=== PATIENT | male | born 1955 | race Caucasian/White ===

== ENCOUNTER 2016-06-23 13:35 | Inpatient (IN) ==
--- NOTE | 2016-06-22 22:12 | Discharge Summary ---
<Gisela Florian Alok - Last Filed: 06/22/16 22:09> Date of Encounter: 06/22/16 - Discharge Diagnosis (1) Arthritis of right hip Priority: Primary Status: Acute (2) HTN (hypertension) Priority: Secondary Status: Chronic Qualifiers: Hypertension type: essential hypertension (3) HLD (hyperlipidemia) Priority: Secondary Status: Chronic Qualifiers: Hyperlipidemia type: unspecified (4) Obesity Priority: Secondary Status: Chronic Qualifiers: Obesity type: unspecified obesity type Obesity severity: unspecified obesity severity Qualified Code(s): E66.9 - Obesity, unspecified - Discharge Medications Home Medications: Calcium Carbonate [Calcium] 600 mg PO BID 09/10/15 [History] Ergocalciferol (VITAMIN D2) [Vitamin D2] 2,000 unit PO DAILY 09/10/15 [History] Ferrous Sulfate 325 mg PO DAILY 09/10/15 [History] Lisinopril 40 mg PO DAILY 09/10/15 [History] Multivitamin [Multi-Day Vitamins] 1 each PO DAILY 09/10/15 [History] [place]-3/Dha/Epa/Fish Oil [Fish Oil Dr 500 mg Softgel] 500 mg PO DAILY 09/10/15 [ History] Terazosin [Hytrin] 5 mg PO DAILY 09/10/15 [History] hydrOXYzine HCl [Hydroxyzine HCl] 50 mg PO HS PRN 09/10/15 [History] hydroCHLOROthiazide [Hydrochlorothiazide] 25 mg PO DAILY 09/10/15 [History] Aspirin Enteric Coated [Aspirin EC] 325 mg PO DAILY #21 tablet. 06/22/16 [Rx] OxyCODONE Immed Rel [Roxicodone 5 MG] 5 - 10 mg PO Q6HR PRN #40 tablet 06/22/16 [Rx] Aspirin Enteric Coated [Aspirin EC] 81 mg PO DAILY 06/23/16 [History] Cyanocobalamin (Vitamin B-12) [Vitamin B-12] 100 mcg PO DAILY 06/23/16 [History] Rosuvastatin Calcium [Crestor] 10 mg PO HS 06/23/16 [History] Allergies/Adverse Reactions: Allergies No Known Allergies Allergy (Verified 09/10/15 08:55) Primary care physician: Conner Painting DO - Patient Status Disposition: Home, Self-Care Condition: Good - Discharge Instructions Follow Up With: Conner Painting DO [Primary Care Provider] - - Hospital Course Hospital course: Mr. Mendez is a 60 year old male - Time Spent with Patient Total time spent providing and/or coordinating discharge services: <Maacrio Sloan - Last Filed: 06/25/16 08:08> Date of Encounter: 06/25/16 Time of Encounter: 08:07 - Discharge Diagnosis (1) Morbid obesity Priority: Secondary Status: Chronic Qualifiers: Obesity type: unspecified obesity type Qualified Code(s): E66.01 - Morbid ( severe) obesity due to excess calories (2) HTN (hypertension) Priority: Secondary Status: Chronic Qualifiers: Hypertension type: unspecified secondary hypertension Qualified Code(s): I15.9 - Secondary hypertension, unspecified; I15 - Secondary hypertension (3) HLD (hyperlipidemia) Priority: Secondary Status: Chronic Qualifiers: Hyperlipidemia type: unspecified Qualified Code(s): E78.5 - Hyperlipidemia , unspecified (4) Arthritis of right hip Priority: Primary Status: Acute Primary care physician: Conner Painting DO - Patient Status Functional capacity at discharge: uses cane/walker Overall status at discharge: patient is progressing back to baseline - Hospital Course Hospital course: Mr. Mendez is a 60 year old male The patient had an uneventful postoperative course. They received antibiotics and physical therapy and were discharged in stable condition. There will follow -up in the office in 2 weeks. Aspirin DVT prophylaxis - Time Spent with Patient Total time spent providing and/or coordinating discharge services:
--- NOTE | 2016-06-23 13:42 | History & Physical Report ---
Date of Encounter: 06/23/16 Time of Encounter: 13:41 24 Hour HP Update - Instructions Instructions: If the History and Physical is less than 30 days old and was completed prior to A.M. admission and or procedure and has NOT been updated on calendar day of procedure please complete this update prior to performing procedure. - Update Patient reports changes in Medical Condition: No Changes in examination, assessment, or condition: No Changes in Medication: No Preop tests/diagnostics Reviewed: Yes Surgery Remains Indicated: Yes Consent for Planned Operative Procedure(s) Verified: Yes - Pre-Operative Checklist Preoperative Checklist Indicated: No Prophylactic Antibiotic Ordered: Yes Is VTE Prophylaxis Indicated?: Yes
[2016-06-23] MEDS ORDERED: CeFAZolin Pre 3,000 MG/100 ML 3,000 MG/100 ML BAG IVPB ONE (13:51)
[2016-06-23] MEDS ORDERED: Ringers Solution, Lactated 1,000 ML IVC SCH (14:00)
[2016-06-23] MEDS ORDERED: Famotidine 20 MG/2 ML VIAL IVP ONE (14:31)
[2016-06-23] MEDS ORDERED: Acetaminophen IV 1,000 MG/100 ML INFUS..BTL IVPB ONE (14:31)
[2016-06-23] MEDS ORDERED: Gabapentin 300 MG CAPSULE PO ONE (14:31)
--- NOTE | 2016-06-23 14:45 | Anesthesia Evaluation PreOp ---
Date of Encounter: 06/23/16 Time of Encounter: 14:45 - Past History Planned Operation: Rt THR Cardiac History: HTN, Hyperlipidemia Pulmonary History: Denies Any Significant HX HAT DESIGNER History: Denies Any Significant HX Other Medical History: Other (Morbid Obesity) Anesthesia History: No Prior Anesthetic Complications Alcohol Use: none Drug use: none Medications and Allergies Calcium Carbonate [Calcium] 600 mg PO BID 09/10/15 [History] Ergocalciferol (VITAMIN D2) [Vitamin D2] 2,000 unit PO DAILY 09/10/15 [History] Ferrous Sulfate 325 mg PO DAILY 09/10/15 [History] Lisinopril 40 mg PO DAILY 09/10/15 [History] Multivitamin [Multi-Day Vitamins] 1 each PO DAILY 09/10/15 [History] [place]-3/Dha/Epa/Fish Oil [Fish Oil Dr 500 mg Softgel] 500 mg PO DAILY 09/10/15 [ History] Terazosin [Hytrin] 5 mg PO DAILY 09/10/15 [History] hydrOXYzine HCl [Hydroxyzine HCl] 50 mg PO HS PRN 09/10/15 [History] hydroCHLOROthiazide [Hydrochlorothiazide] 25 mg PO DAILY 09/10/15 [History] Aspirin Enteric Coated [Aspirin EC] 325 mg PO DAILY #21 tablet. 06/22/16 [Rx] OxyCODONE Immed Rel [Roxicodone 5 MG] 5 - 10 mg PO Q6HR PRN #40 tablet 06/22/16 [Rx] Aspirin Enteric Coated [Aspirin EC] 81 mg PO DAILY 06/23/16 [History] Cyanocobalamin (Vitamin B-12) [Vitamin B-12] 100 mcg PO DAILY 06/23/16 [History] Oxycodone HCl/Acetaminophen [Percocet 5-325 mg Tablet] 0.5 - 1 each PO Q12H PRN 06/23/16 [History] Rosuvastatin Calcium [Crestor] 10 mg PO HS 06/23/16 [History] Allergies No Known Allergies Allergy (Verified 09/10/15 08:55) - Meds/Allergy Pre-op Review Medications Reviewed: Yes Allergies Reviewed: Yes Beta Blockers on Current Med List: No Anesthesia Results - Labs Laboratory Tests 05/27/16 05/27/16 12:01 12:01 Hgb 16.3 Hct 48.3 Plt Count 289 Sodium 141 Potassium 4.3 BUN 15 Creatinine 0.97 - Imaging EKG: report reviewed (SB) Additional studies: Nuclear/Pharmacologic Stress Test Negative for Ischemia EF 51% Anesthesia Exam O2 Sat Height 1.8 m Height 1.8 m Weight 139.253 kg Weight 139.253 kg O2 Sat by Pulse Oximetry 95 Vital Signs Temp Pulse Resp BP Pulse Ox 98.5 F 58 18 144/78 95 06/23/16 13:53 06/23/16 13:53 06/23/16 13:53 06/23/16 13:53 06/23/16 13:53 Height: 5'11 Weight: 307 lbs NPO (# of Hours): MN Pain Scale: 0 - HEENT Pupil (Motor): Pupils equal, EOMI Mallampati: III Teeth: Normal Oral Opening: Greater than 3 - HAT DESIGNER LOC: Oriented HAT DESIGNER Sensory: Normal: RUE, LUE, RLE, LLE, Face - Cardiac Rhythm: Regular Murmur: None JVD: No Carotid Bruit: No - Pulmonary Breath Sounds: bilateral Clear Respiratory Effort: Symmetrical Anesthesia Assess/Plan ASA Score: 3 (HTN MO) Modified [place] Scale for Level of Consciousness: Cooperative, oriented, and tranquil Anesthetic Plan: General Monitoring Plan: Standard Monitors Recovery Plan: PACU (Discussed GA, agrees to proceed)
[2016-06-23] MEDS ORDERED: Ondansetron 4 MG/2 ML VIAL ONE (16:34)
[2016-06-23] MEDS ORDERED: *HR* Succinylcholine 200 MG/10 ML VIAL IVP ONE (16:34)
[2016-06-23] MEDS ORDERED: Dexamethasone 4 MG/ML VIAL ONE (16:34)
[2016-06-23] MEDS ORDERED: *HR* Midazolam HCl 2 MG/2 ML VIAL ONE (16:34)
[2016-06-23] MEDS ORDERED: Lidocaine -MPF 4% 5 ML AMPUL ONE (16:34)
[2016-06-23] MEDS ORDERED: *HR* FentaNYL (PF) 100 MCG/2 ML VIAL ONE (16:34)
[2016-06-23] MEDS ORDERED: Lidocaine -MPF 2% 2 ML VIAL ONE (16:35)
[2016-06-23] MEDS ORDERED: *HR* Propofol 200 MG/20 ML VIAL IVP ONE (16:35)
[2016-06-23] MEDS ORDERED: *HR* HYDROmorphone 2 MG/ML SYRINGE ONE (17:08)
[2016-06-23] MEDS ORDERED: EPHEDrine 50 MG/ML VIAL ONE (17:15)
[2016-06-23] MEDS ORDERED: *HR* HYDROmorphone (PF) 1 MG/ML SYRINGE IVP PRN ×2 (17:35→19:56)
[2016-06-23] MEDS ORDERED: *HR* Promethazine 25 MG/ML VIAL IVP PRN (17:35)
[2016-06-23] MEDS ORDERED: Ondansetron 4 MG/2 ML VIAL IVP PRN ×2 (17:35→19:56)
[2016-06-23] MEDS ORDERED: *HR* Meperidine 25 MG/ML SYRINGE IVP PRN (17:35)
[2016-06-23] MEDS ORDERED: Naloxone 0.4 MG/ML INJ IVP PRN ×2 (17:35→19:56)
--- NOTE | 2016-06-23 17:40 | Orthopedic Operative Note ---
Date of procedure: 06/23/16 Pre-op diagnosis: Right hip arthritis Post-op diagnosis: same Procedure: Procedure: Right Total Hip Replacment Estimated blood loss: 200 cc Hardware: Metal and polyethylene replacement. Biomet DM Cup: 56 G7 fin cup Femoral size 15 echo full profile lateralized stem Head: +3 head with Kaye Exam under anesthesia: Global loss of motion of the right hip Procedural Notes: Grade 4 arthritic changes femoral head acetabular socket. Operative procedure: The patient was brought to the operating room and placed on the operating room table. After general anesthesia was administered the patient was placed in the lateral decubitus position with the operative leg up. All pressure points were padded appropriately and the head was stabilized in the neutral position. The operative extremity was prepped and draped in the sterile surgical fashion patient received IV antibiotic prior to skin incision. A standard posterior approach is made to the operative hip, the incision was made through the skin and subcutaneous tissue hemostasis was obtained with Bovie cautery. Using careful sharp dissection the fascia was identified and incised exposing the external rotators. The external rotators were released off the greater trochanter and tagged with #2 FiberWire suture. The capsule was T'd open and the hip was brought into internal rotation. Patient noted to have grade 4 arthritic changes femoral head. The femoral neck cut was made at the appropriate level. An anterior capsulotomy was performed for the anterior retractor. Soft tissues removed from the acetabulum. Patient noted to have grade 4 arthritic changes acetabulum. Acetabulum was first reamed medially, and then reamed in 15 degrees of anteversion and 45 degrees off the horizontal. It was reamed up to the appropriate size 66 The appropriate-sized 56 acetabular cup was impacted in place in 15 degrees of anteversion and 45 degrees off the horizontal. This had good fit and fixation. The hip was brought back in to internal rotation and prepared with the card boxer followed by the canal finder followed by broaching process in 20 degrees anteversion. It was broached up to the appropriate size 11 The femoral implant was impacted in place in 20 degrees of anteversion. Trial reduction found the hip to be stable with +3 head and Kaye. The trials were removed and the real implants were impacted in place. The hip was reduced, patient had apparent equal leg lengths. The hip had excellent stability with forward flexion to 90 degrees adduction of 30 degrees and internal rotation of 60 degrees. The hip had no shuck. The hips after 2 minutes with a Betadine saline solution. It was irrigated out with 2 L of pulse irrigation. The external rotators were reattached to drill holes in the greater trochanter. Fascia was closed with a running #2 PDS suture. The deep tissue was irrigated and closed deep with #1 PDS suture superficially with 0 PDS suture and skin was closed with Dermabond and skin shira. The patient was placed in a sterile dressing and abduction pillow. The patient was extubated and transferred to the recovery room in stable condition. Anesthesia: GETA Surgeon: Macario Sloan Condition: stable Disposition: PACU
[2016-06-23] MEDS ORDERED: *HR* Enoxaparin 30 MG/0.3 ML SYRINGE SQ SCH (18:00)
--- NOTE | 2016-06-23 18:50 | Anesthesia Evaluation Post Op ---
Date of Encounter: 06/23/16 Time of Encounter: 18:50 - Vital Signs Vital Signs: Vital Signs/O2 Sat, Most Current Temp Pulse Resp BP Pulse Ox 97.0 F L 52 16 126/74 96 06/23/16 18:41 06/23/16 18:41 06/23/16 18:41 06/23/16 18:41 06/23/16 18:41 - Lungs Lungs: Clear Ascult./Percussion - Airway Airway: Non-obstructed - Cardiovascular Regular Rate - Mental Status Mental Status: Alert & Oriented, Answers Appropriately - Pain Pain Scale: 4 Pain Scale used: Numeric (1 - 10) - Nausea Vomiting Nausea Vomiting: Not Present - Hydration Hydration: Ice chips, Has not voided - Discharge PostOp Status: Transfer Patient to floor
[2016-06-23 19:02] LABS: Hematocrit 41.5 % (37.5-50.1); Hemoglobin 14.1 g/dL (12.9-16.9)
[2016-06-23] MEDS ORDERED: *HR* OxyCODONE Immed Rel 5 MG TABLET PO PRN (19:56)
[2016-06-23] MEDS ORDERED: MOM Conc 10 ML UD.LIQ PO PRN (19:56)
[2016-06-23] MEDS ORDERED: Temazepam 15 MG CAPSULE PO PRN (19:56)
[2016-06-23] MEDS ORDERED: Sennosides 8.6 MG TABLET PO PRN (19:56)
[2016-06-23] MEDS ORDERED: hydrOXYzine pamoate 25 MG CAPSULE PO PRN (19:56)
[2016-06-23] MEDS: Ascorbic Acid 500 MG TABLET PO SCH (22:41)
[2016-06-23] MEDS: *HR* OxyCODONE Immed Rel 5 MG TABLET PO PRN (22:41)
[2016-06-23] MEDS: ceFAZolin 3,000 MG in D5% in Water 100 ML IVPB SCH (22:42)
[2016-06-24] MEDS: ceFAZolin 3,000 MG in D5% in Water 100 ML IVPB SCH (02:44)
[2016-06-24] MEDS: *HR* Enoxaparin 30 MG/0.3 ML SYRINGE SQ SCH ×2 (05:26→16:48)
[2016-06-24] MEDS: *HR* OxyCODONE Immed Rel 5 MG TABLET PO PRN ×4 (05:28→20:58)
[2016-06-24 06:32] LABS: Hematocrit 40.2 % (37.5-50.1); Hemoglobin 13.3 g/dL (12.9-16.9)
--- NOTE | 2016-06-24 06:45 | Orthopedics Progress Note ---
Date of Encounter: 06/24/16 Time of Encounter: 06:44 - Assessment and Plan (1) Morbid obesity Current Visit: Yes Status: Chronic Qualifiers: Obesity type: unspecified obesity type Qualified Code(s): E66.01 - Morbid ( severe) obesity due to excess calories (2) HTN (hypertension) Current Visit: No Status: Chronic Qualifiers: Hypertension type: unspecified secondary hypertension Qualified Code(s): I15.9 - Secondary hypertension, unspecified; I15 - Secondary hypertension (3) HLD (hyperlipidemia) Current Visit: No Status: Chronic Qualifiers: Hyperlipidemia type: unspecified Qualified Code(s): E78.5 - Hyperlipidemia , unspecified (4) Arthritis of right hip Current Visit: Yes Status: Acute Subjective Interval history: Patient was seen this morning doing well without complaints. Afebrile vital signs stable. Operative extremity: Neurovascularly intact Dressing clean dry and intact Calves nontender Assessment and plan: Continue with postoperative care Objective Vital signs: Vital Signs Temp Pulse Resp BP Pulse Ox 06/24/16 04:02 97.6 F 59 16 116/68 97 06/24/16 00:46 97.6 F 54 16 94/60 95 06/23/16 22:55 98.2 F 54 16 100/60 95 06/23/16 21:45 98.3 F 55 18 98/56 97 06/23/16 20:45 98.1 F 50 16 102/69 96 06/23/16 20:15 98.2 F 53 16 106/68 95 06/23/16 19:48 98.1 F 53 16 102/68 95 06/23/16 18:51 58 16 122/78 94 06/23/16 18:41 97.0 F L 52 16 126/74 96 06/23/16 18:31 68 16 109/88 92 06/23/16 18:21 65 16 121/83 94 06/23/16 18:11 97.4 F L 76 16 146/97 94 06/23/16 13:53 98.5 F 58 18 144/78 95 Intake and Output 06/23/16 06/23/16 06/24/16 15:59 23:59 07:59 Intake Total 100 / 100 100 / 100 Output Total 500 / 500 Balance -400 / -400 100 / 100 Intake: IV Fluids 100 / 100 100 / 100 Ancef 3,000 MG In 100 / 100 100 / 100 Dextrose 5% 100 ML @ 200 mls/hr IVPB Q8HR [facility] Rx#: [id number] Output: Estimated Blood Loss 500 / 500 Other: Weight 139.253 kg - Labs CBC & BMP: 06/24/16 05:58 - VTE Documentation of Mechanical Device: Venous foot pump, device Consult Discharge Plan - Plan Referrals: Conner Painting DO [Primary Care Provider] -
[2016-06-24 06:50] LABS: BUN/Creatinine Ratio 21 (6-26); Blood Urea Nitrogen 19 mg/dL (8-26); Calcium 9.5 mg/dL (8.6-10.8); Carbon Dioxide 25 mEq/L (19-29); Chloride 99 mEq/L (98-109); Glucose 146 mg/dL (70-99); Osmolality,Calculated 285 (280-300); Potassium 4.4 mEq/L (3.5-4.5); Sodium 135 mEq/L (136-145); eGFR For African Americans > 60 (> 60); eGFR For Non-African Americans > 60 (> 60)
[2016-06-24] MEDS: hydroCHLOROthiazide 25 MG TABLET PO SCH (08:27)
[2016-06-24] MEDS: Ascorbic Acid 500 MG TABLET PO SCH ×2 (08:27→16:48)
[2016-06-24] MEDS: Multivit/Ca/Min/Fe/FA 1 TAB TABLET PO SCH (08:27)
[2016-06-24] MEDS: Cholecalciferol (D-3) 1,000 UNIT TABLET PO SCH (08:27)
[2016-06-24] MEDS: Aspirin Enteric Coated 81 MG Tablet PO SCH (08:27)
[2016-06-24] MEDS: Cyanocobalamin (B-12) 1,000 MCG TABLET PO SCH (08:27)
[2016-06-24] MEDS: Lisinopril 20 MG TABLET PO SCH (08:28)
[2016-06-24] MEDS: FISH OIL 500 MG PO SCH (08:28)
[2016-06-24] MEDS: Ringers Solution, Lactated 1,000 ML IVC SCH ×2 (08:33→13:09)
[2016-06-24] MEDS ORDERED: NON-FORMULARY MEDICATION 1 EACH EACH (Multivitamin [Multi-Day Vitamins] 1 EACH) PO SCH (09:00)
[2016-06-25] MEDS: *HR* OxyCODONE Immed Rel 5 MG TABLET PO PRN ×3 (03:47→13:13)
[2016-06-25] MEDS: *HR* Enoxaparin 30 MG/0.3 ML SYRINGE SQ SCH (05:43)
[2016-06-25 05:58] LABS: Hematocrit 33.5 % (37.5-50.1)
[2016-06-25 06:11] LABS: Hemoglobin 11.4 g/dL (12.9-16.9)
[2016-06-25 06:15] LABS: BUN/Creatinine Ratio 23 (6-26); Blood Urea Nitrogen 28 mg/dL (8-26); Calcium 9.7 mg/dL (8.6-10.8); Carbon Dioxide 30 mEq/L (19-29); Chloride 94 mEq/L (98-109); Glucose 109 mg/dL (70-99); Osmolality,Calculated 276 (280-300); Potassium 4.1 mEq/L (3.5-4.5); Sodium 130 mEq/L (136-145); eGFR For African Americans > 60 (> 60); eGFR For Non-African Americans > 60 (> 60)
[2016-06-25] MEDS: Multivit/Ca/Min/Fe/FA 1 TAB TABLET PO SCH (09:13)
[2016-06-25] MEDS: Aspirin Enteric Coated 81 MG Tablet PO SCH (09:13)
[2016-06-25] MEDS: Cholecalciferol (D-3) 1,000 UNIT TABLET PO SCH (09:13)
[2016-06-25] MEDS: Ascorbic Acid 500 MG TABLET PO SCH (09:13)
[2016-06-25] MEDS: hydroCHLOROthiazide 25 MG TABLET PO SCH (09:13)
[2016-06-25] MEDS: Cyanocobalamin (B-12) 1,000 MCG TABLET PO SCH (09:13)
[2016-06-25] MEDS: FISH OIL 500 MG PO SCH (09:14)
[2016-06-25] MEDS: Lisinopril 20 MG TABLET PO SCH (09:14)
[2016-06-25 10:46] VITALS: BP 107/63
[2016-06-25] MEDS: Ringers Solution, Lactated 1,000 ML IVC SCH (12:13)
== END 2016-06-25 14:40 | disposition home or self-care (01) | DRG 470 ==
LOC: SAMDAY 13:35 → 3NENU 19:44
PROVIDERS: ADMIT Orthopaedic Surgery; ATTEND Orthopaedic Surgery

== ENCOUNTER 2021-12-06 06:03 | Inpatient (IN) ==
[2021-12-06] MEDS ORDERED: CeFAZolin Syr 3,000MG/30 ML 3,000 MG/30 ML SYRINGE IVPB ONE (06:21)
[2021-12-06] MEDS ORDERED: Ringers Solution, Lactated 1,000 ML IVC SCH (06:30)
[2021-12-06] MEDS ORDERED: *HR* OxyCODONE Immed Rel 5 MG TABLET PO ONE (07:00)
[2021-12-06] MEDS ORDERED: tiZANidine 4 MG TABLET PO ONE (07:00)
[2021-12-06] MEDS ORDERED: Famotidine 20 MG TABLET PO ONE (07:00)
[2021-12-06] MEDS ORDERED: Pregabalin 75 MG CAPSULE PO ONE (07:00)
[2021-12-06] MEDS ORDERED: Vancomycin 1,000 MG VIAL ONE ×2 (07:14→12:50)
[2021-12-06] MEDS ORDERED: Bacitracin OINT PKT TP ONE (07:14)
[2021-12-06] MEDS ORDERED: *HR* Propofol 200 MG/20 ML VIAL IVP ONE (07:23)
[2021-12-06] MEDS ORDERED: *HR* Midazolam HCl 2 MG/2 ML VIAL ONE (07:23)
[2021-12-06] MEDS ORDERED: *HR* Succinylcholine 200 MG/10 ML VIAL IVP ONE (07:23)
[2021-12-06] MEDS ORDERED: *HR* FentaNYL (PF) 100 MCG/2 ML VIAL ONE (07:23)
[2021-12-06] MEDS ORDERED: Ondansetron 4 MG/2 ML VIAL ONE (07:23)
[2021-12-06] MEDS ORDERED: *HR* Remifentanil 1 MG VIAL IVP ONE ×4 (07:23→13:09)
[2021-12-06] MEDS ORDERED: *HR* Phenylephrine 10 MG/ML VIAL ONE ×2 (07:34→12:46)
[2021-12-06] MEDS ORDERED: *HR* Remifentanil 2 MG VIAL IVP ONE (10:01)
[2021-12-06] MEDS ORDERED: Ondansetron 4 MG/2 ML VIAL IVP PRN ×2 (10:58→18:03)
[2021-12-06] MEDS: *HR* HYDROmorphone PF 0.5 MG/0.5 ML SYRINGE IVP PRN ×3 (16:06→16:38)
[2021-12-06] MEDS ORDERED: Naloxone 0.4 MG/ML INJ IVP PRN (18:03)
[2021-12-06] MEDS ORDERED: SILDENAFIL CITRATE 100 MG PO PRN (18:03)
[2021-12-06] MEDS ORDERED: Acetaminophen 325 MG TABLET PO PRN (18:03)
[2021-12-06] MEDS ORDERED: CeFAZolin Syr 3,000MG/30 ML 3,000 MG/30 ML SYRINGE IVPB SCH (18:03)
[2021-12-06] MEDS: ceFAZolin 3,000 MG in 0.9 % Sodium Chloride 100 ML IVPB SCH (20:28)
[2021-12-06] MEDS: Ringers Solution, Lactated 1,000 ML IVC SCH (20:28)
[2021-12-06] MEDS: traZODone 50 MG TABLET PO SCH (20:28)
[2021-12-06] MEDS: Gabapentin 300 MG CAPSULE PO SCH (20:29)
[2021-12-06] MEDS: *HR* OxyCODONE Immed Rel 5 MG TABLET PO PRN (23:47)
[2021-12-07] MEDS: ceFAZolin 3,000 MG in 0.9 % Sodium Chloride 100 ML IVPB SCH (02:39)
[2021-12-07] MEDS: *HR* HYDROcodone/Acet 5/325 mg TABLET PO PRN ×3 (03:18→20:18)
[2021-12-07] MEDS ORDERED: NON-FORMULARY MEDICATION 1 EACH EACH (Omega-3/Dha/Epa/Fish Oil [Fish Oil Dr 500 Mg Softgel PO SCH (09:00)
[2021-12-07] MEDS: Ringers Solution, Lactated 1,000 ML IVC SCH ×3 (09:36→22:50)
[2021-12-07] MEDS: Cholecalciferol (D-3) 1,000 UNIT (25MCG) TABLET PO SCH (09:36)
[2021-12-07] MEDS: Aspirin Enteric Coated 81 MG Tablet PO SCH (09:37)
[2021-12-07] MEDS: Gabapentin 300 MG CAPSULE PO SCH ×3 (09:38→20:18)
[2021-12-07] MEDS: Multivit/Ca/Min/Fe/FA 1 TAB TABLET PO SCH (09:38)
[2021-12-07] MEDS: Cyanocobalamin (B-12) 1,000 MCG TABLET PO SCH (09:38)
[2021-12-07] MEDS: lisinopriL 20 MG TABLET PO SCH (14:17)
[2021-12-07] MEDS: amLODIPine 5 MG TABLET PO SCH (14:17)
[2021-12-07] MEDS: hydroCHLOROthiazide 25 MG TABLET PO SCH (14:17)
[2021-12-07] MEDS: traZODone 50 MG TABLET PO SCH (20:18)
[2021-12-08] MEDS: *HR* HYDROcodone/Acet 5/325 mg TABLET PO PRN (05:45)
[2021-12-08] MEDS: lisinopriL 20 MG TABLET PO SCH (08:44)
[2021-12-08] MEDS: Cyanocobalamin (B-12) 1,000 MCG TABLET PO SCH (08:45)
[2021-12-08] MEDS: Multivit/Ca/Min/Fe/FA 1 TAB TABLET PO SCH (08:45)
[2021-12-08] MEDS: Gabapentin 300 MG CAPSULE PO SCH ×3 (08:45→20:03)
[2021-12-08] MEDS: Aspirin Enteric Coated 81 MG Tablet PO SCH (08:46)
[2021-12-08] MEDS: Cholecalciferol (D-3) 1,000 UNIT (25MCG) TABLET PO SCH (08:46)
[2021-12-08] MEDS: amLODIPine 5 MG TABLET PO SCH (08:50)
[2021-12-08] MEDS: hydroCHLOROthiazide 25 MG TABLET PO SCH (08:50)
[2021-12-08] MEDS: *HR* OxyCODONE Immed Rel 5 MG TABLET PO PRN ×2 (13:26→20:03)
[2021-12-08] MEDS: Ringers Solution, Lactated 1,000 ML IVC SCH (19:56)
[2021-12-08] MEDS: traZODone 50 MG TABLET PO SCH (20:03)
[2021-12-09] MEDS: Ringers Solution, Lactated 1,000 ML IVC SCH (05:26)
[2021-12-09 08:25] VITALS: BP 123/64; PULSE 52; TEMP 97.9; O2SAT 95
[2021-12-09] MEDS: Aspirin Enteric Coated 81 MG Tablet PO SCH (10:16)
[2021-12-09] MEDS: hydroCHLOROthiazide 25 MG TABLET PO SCH (10:16)
[2021-12-09] MEDS: Gabapentin 300 MG CAPSULE PO SCH (10:17)
[2021-12-09] MEDS: *HR* HYDROcodone/Acet 5/325 mg TABLET PO PRN (10:17)
[2021-12-09] MEDS: Cyanocobalamin (B-12) 1,000 MCG TABLET PO SCH (10:17)
[2021-12-09] MEDS: Multivit/Ca/Min/Fe/FA 1 TAB TABLET PO SCH (10:17)
[2021-12-09] MEDS: lisinopriL 20 MG TABLET PO SCH (10:19)
[2021-12-09] MEDS: amLODIPine 5 MG TABLET PO SCH (10:19)
[2021-12-09] MEDS: Cholecalciferol (D-3) 1,000 UNIT (25MCG) TABLET PO SCH (10:19)
[2021-12-09] MEDS: *HR* OxyCODONE Immed Rel 5 MG TABLET PO PRN (14:58)
== END 2021-12-09 16:00 | disposition home or self-care (01) | DRG 472 ==
LOC: SDCAOSI 06:03 → 4WAOSI 17:53
PROVIDERS: ADMIT Orthopaedic Surgery Orthopaedic Surgery of the Spine; ATTEND Orthopaedic Surgery Orthopaedic Surgery of the Spine